=== PATIENT | male | born 2000 | race Hispanic/Latino ===

== ENCOUNTER 2018-09-08 03:41 | Inpatient (IN) | payer BC, SELFPAY ==
[2018-09-08 04:05] LABS: #Basophils 0.1 thou/uL (0.0-0.2); #Eosinphils 0.3 thou/uL (0.0-0.7); #Lymphocytes 4.8 thou/uL (1.20-3.40); #Monocytes 0.6 thou/uL (0.11-0.59); #Neutrophils 6.7 thou/uL (1.40-6.50); %Basophils 0.8 % (0.0-1.0); %Eosinophils 2.1 % (0.0-10.0); %Lymphocytes 38.1 % (28.0-48.0); %Monocytes 5.1 % (0.0-4.0); Hemoglobin 14.9 g/dL (14.0-18.0); Mean Corpuscular HGB CONC 33.2 g/dL (32.0-36.0); Mean Corpuscular Hemoglobin 29.5 pg (25.0-35.0); Mean Corpuscular Volume 88.8 fL (78.0-98.0); Mean Platelet Volume 7.7 fL (7.4-10.4); Platelet Count 325 thou/uL (130-400); RBC Distribution Width 11.8 % (11.5-14.5); Red Blood Cell (RBC) Count 5.07 mill/uL (4.00-5.20); White Blood Cell (WBC) Count 12.5 thou/uL (4.8-10.8)
[2018-09-08 04:12] LABS: INR-International Normal Ratio 1.2; PTT 34.9 SEC (22.9-36.1); Prothrombin Time 15.2 SEC (12.0-14.7)
[2018-09-08 04:17] LABS: ALT (SGPT) 31 U/L (8-55); AST (SGOT) 21 U/L (5-34); Albumin 3.9 g/dL (3.5-5.0); Alkaline Phosphatase 112 U/L (Less than 750); Anion Gap 17 mmol/L (10-20); BUN (Urea Nitrogen) 18 mg/dL (8.9-20.6); Bilirubin, Total 0.6 mg/dL (0.2-1.2); Calc. Creatinine Clearance 0 mL/min (70-130); Calcium 9.2 mg/dL (7.8-10.44); Carbon Dioxide 20 mmol/L (22-29); Chloride 105 mmol/L (98-107); Estimated GFR-MDRD 76; Globulin 3.4 g/dL (2.4-3.5); Glucose 134 mg/dL (70-105); Protein, Total 7.3 g/dL (6.0-8.3); Sodium 139 mmol/L (136-145)
[2018-09-08] MEDS ORDERED: Piperacillin/Tazobactam 3.375 GM VIAL ONE (04:48)
[2018-09-08] MEDS ORDERED: SUGAMMADEX SODIUM 500 MG/5 ML VIAL ONE (05:27)
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
[2018-09-08] MEDS ORDERED: Ondansetron PF 4 MG/2 ML Vial IVP PRN (05:36)
[2018-09-08] MEDS ORDERED: hydrALAZINE 20 MG/ML VIAL SLOW IVP PRN (05:36)
[2018-09-08] MEDS ORDERED: Morphine 4 MG/ML VIAL SLOW IVP PRN (05:36)
[2018-09-08] MEDS ORDERED: Ondansetron ODT 4 MG TAB PO PRN (05:36)
[2018-09-08] MEDS ORDERED: D5 LR w/20 mEq KCL 1,000 ML IV SCH (05:45)
[2018-09-08] MEDS ORDERED: Ketorolac Tromethamine 30 MG/ML VIAL IVP SCH (06:00)
[2018-09-08] MEDS ORDERED: Fentanyl 250 MCG/5 ML VIAL ONE (06:13)
[2018-09-08] MEDS: Acetaminophen 1,000 MG in Premix Bag 1 BAG IVPB SCH ×4 (06:24→23:35)
[2018-09-08] MEDS: Potassium Chloride 20 MEQ, Admixture Fee 1 EACH in Dextrose 5%-Lactated Ringers 1,000 ML IV SCH ×2 (08:44→17:19)
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
[2018-09-08] MEDS ORDERED: diphenhydrAMINE 50 MG/ML VIAL IVP PRN (10:13)
[2018-09-08] MEDS ORDERED: Naloxone HCl 0.4 mg/ml Vial IV PRN (10:13)
[2018-09-08] MEDS ORDERED: fentaNYL Citrate/PF 2,000 MCG in Sodium Chloride 0.9% 60 ML IV PRN (10:13)
[2018-09-08] MEDS ORDERED: Zolpidem Tartrate 5 MG TAB PO PRN (10:13)
[2018-09-08] MEDS ORDERED: diphenhydrAMINE 50 MG/ML VIAL IM PRN (10:13)
[2018-09-08] MEDS ORDERED: diphenhydrAMINE 25 MG CAP PO PRN (10:13)
[2018-09-08] MEDS ORDERED: Promethazine HCl 25 MG/ML VIAL IM PRN (10:13)
[2018-09-08] MEDS ORDERED: Communication Order-Pharmacy FS SCH (10:15)
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
[2018-09-08 11:51] LABS: Bilirubin Small (Negative); Blood, Urine Large (Negative); Clarity TURBID (Clear); Glucose, Urine (Dipstick) 100 mg/dL (Negative); Leukocyte Negative (Negative); Nitrite Negative (Negative); Protein, Urine (Dipstick) 100 mg/dL (Neg-Trace); Specific Gravity, Urine 1.038 (1.002-1.036); pH, Urine 5.5 (5.0-9.0)
[2018-09-08 11:55] LABS: Pathc Cast-AUWi Flag 2.47 (0-2.49); RBC/HPF GREATER THAN 50-TNTC HPF (0-3)
[2018-09-08 12:04] LABS: Bacteria/HPF 2+ HPF (None Seen); Hyaline Casts/LPF NONE SEEN LPF (0-3 Hyaline); Renal Epithelial None Seen HPF (0-3); Transitional Epithelial 0-3 HPF (0-3)
[2018-09-08] MEDS ORDERED: cefTRIAXone\\ROCEPHIN 1 GM in Sodium Chloride 0.9% 100 ML IVPB SCH (13:15)
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
[2018-09-08] MEDS ORDERED: Lidocaine 1% PF 5 ML VIAL ONE (15:36)
[2018-09-08] MEDS ORDERED: PROPOFOL 200 MG/20 ML VIAL ONE (15:36)
[2018-09-08] MEDS ORDERED: Rocuronium Bromide 10 MG/ML (10ML VIAL) ONE (15:36)
[2018-09-08] MEDS ORDERED: Succinylcholine Chloride 20 MG/ML 10 ml SYRINGE FS ONE (15:36)
[2018-09-08] MEDS ORDERED: PHENYLEPHRINE-NS 100 MCG/ML 10 ML SYRINGE ONE (15:36)
[2018-09-08] MEDS ORDERED: Glycopyrrolate 0.2 MG/ML 5 ML SYRINGE ONE (15:36)
[2018-09-08] MEDS ORDERED: ePHEDrine/0.9% NaCl/PF SYRINGE 50 mg/10 ml ONE (15:36)
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
[2018-09-08] MEDS ORDERED: hydrALAZINE 20 MG/ML VIAL SLOW IVP SCH (23:15)
[2018-09-08] MEDS: HYDROcodone/Acetaminophen 10/325 mg Tablet PO PRN (23:34)
[2018-09-08] MEDS: Ondansetron PF 4 MG/2 ML Vial IVP PRN (23:47)
[2018-09-09] MEDS: Potassium Chloride 20 MEQ, Admixture Fee 1 EACH in Dextrose 5%-Lactated Ringers 1,000 ML IV SCH ×2 (02:50→12:16)
[2018-09-09] MEDS: Acetaminophen 1,000 MG in Premix Bag 1 BAG IVPB SCH (06:29)
[2018-09-09 06:40] LABS: Anion Gap 14 mmol/L (10-20); BUN (Urea Nitrogen) 17 mg/dL (8.9-20.6); Calc. Creatinine Clearance 154 mL/min (70-130); Carbon Dioxide 19 mmol/L (22-29); Chloride 106 mmol/L (98-107); Estimated GFR-MDRD 60; Potassium 4.3 mmol/L (3.5-5.1); Sodium 135 mmol/L (136-145)
[2018-09-09 06:41] LABS: ALT (SGPT) 299 U/L (8-55); AST (SGOT) 303 U/L (5-34); Albumin 3.8 g/dL (3.5-5.0); Alkaline Phosphatase 90 U/L (Less than 750); Bilirubin, Total 1.2 mg/dL (0.2-1.2); Calcium 9.3 mg/dL (7.8-10.44); Globulin 3.3 g/dL (2.4-3.5); Glucose 105 mg/dL (70-105); Protein, Total 7.1 g/dL (6.0-8.3)
[2018-09-09 06:42] LABS: Band 4 % (5-11); Hemoglobin 15.1 g/dL (14.0-18.0); Lymphocytes 12 % (28-48); MDiff Complete? YES; Mean Corpuscular HGB CONC 33.3 g/dL (32.0-36.0); Mean Corpuscular Hemoglobin 30.3 pg (25.0-35.0); Mean Corpuscular Volume 91.1 fL (78.0-98.0); Mean Platelet Volume 7.7 fL (7.4-10.4); Monocytes 7 % (0-4); Neutrophil 77 % (31-61); Platelet Count 219 thou/uL (130-400); RBC Distribution Width 12.5 % (11.5-14.5); Red Blood Cell (RBC) Count 4.99 mill/uL (4.00-5.20); White Blood Cell (WBC) Count 22.5 thou/uL (4.8-10.8)
[2018-09-09] MEDS: HYDROcodone/Acetaminophen 10/325 mg Tablet PO PRN (09:19)
[2018-09-09] MEDS ORDERED: traMADol HCl 50 MG TAB PO PRN ×2 (10:36)
[2018-09-09] MEDS ORDERED: Sodium Chloride 0.9% 1,000 ML IV SCH (10:45)
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
[2018-09-09] MEDS: Ibuprofen 800 MG TAB PO SCH ×2 (14:26→21:52)
[2018-09-09] MEDS ORDERED: Heparin 10,000 UNITS/1 ML VIAL ONE (17:16)
[2018-09-09] MEDS: traMADol HCl 50 MG TAB PO SCH ×2 (17:36→23:43)
[2018-09-09] MEDS: traMADol HCl 50 MG TAB PO PRN ×2 (17:36→23:48)
[2018-09-09] MEDS: Sodium Chloride 0.9% 1,000 ML IV SCH ×2 (17:37→23:44)
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
[2018-09-10] MEDS: traMADol HCl 50 MG TAB PO SCH ×3 (05:02→19:22)
[2018-09-10] MEDS: Ibuprofen 800 MG TAB PO SCH (05:02)
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
[2018-09-10 05:36] LABS: #Eosinphils 0.1 thou/uL (0.0-0.7); #Monocytes 1.6 thou/uL (0.11-0.59); #Neutrophils 17.9 thou/uL (1.40-6.50); %Basophils 0.1 % (0.0-1.0); %Eosinophils 0.7 % (0.0-10.0); %Monocytes 7.5 % (0.0-4.0); %Neutrophils 82.7 % (31.0-61.0); Mean Corpuscular HGB CONC 31.1 g/dL (32.0-36.0); Mean Corpuscular Volume 90.2 fL (78.0-98.0); Mean Platelet Volume 7.7 fL (7.4-10.4); Platelet Count 202 thou/uL (130-400); RBC Distribution Width 12.2 % (11.5-14.5); Red Blood Cell (RBC) Count 4.62 mill/uL (4.00-5.20); White Blood Cell (WBC) Count 21.6 thou/uL (4.8-10.8)
[2018-09-10 05:53] LABS: Anion Gap 12 mmol/L (10-20); BUN (Urea Nitrogen) 15 mg/dL (8.9-20.6); Calc. Creatinine Clearance 156 mL/min (70-130); Calcium 9.4 mg/dL (7.8-10.44); Carbon Dioxide 22 mmol/L (22-29); Chloride 101 mmol/L (98-107); Estimated GFR-MDRD 61; Glucose 90 mg/dL (70-105); Magnesium 2.5 mg/dL (1.7-2.2); Sodium 131 mmol/L (136-145)
[2018-09-10 05:59] LABS: Phosphorus 1.9 mg/dL (2.3-4.7)
[2018-09-10] MEDS ORDERED: Potassium Phosphate 30 MMOL in Sodium Chloride 0.9% 500 ML IVPB SCH (07:57)
[2018-09-10] MEDS: Magnesium Oxide 400 MG TAB PO SCH ×2 (09:16→22:05)
[2018-09-10] MEDS: Sodium Chloride 1 GM TAB PO SCH ×3 (09:17→17:02)
[2018-09-10] MEDS ORDERED: Enoxaparin Sodium 30 MG/0.3 ML SYRINGE SC SCH (09:45)
[2018-09-10] MEDS ORDERED: ISOVUE-370 76%-LOCM 1 ML ONE ×2 (09:53)
[2018-09-10] MEDS ORDERED: Iopamidol 370 76% 50 ML VIAL FS ONE (09:53)
[2018-09-10] MEDS: traMADol HCl 50 MG TAB PO PRN (11:17)
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
[2018-09-10] MEDS: Acetaminophen 500 MG TAB PO PRN (15:25)
[2018-09-10] MEDS ORDERED: Sodium Bicarb 50 MEQ/50 ML VIAL IVP SCH (15:30)
[2018-09-10] MEDS ORDERED: Sodium Chloride 0.9% 1,000 ML IV SCH ×3 (15:45→18:30)
[2018-09-10 15:55] LABS: Bilirubin Small (Negative); Blood, Urine Large (Negative); Clarity CLEAR (Clear); Glucose, Urine (Dipstick) Negative (Negative); Leukocyte Negative (Negative); Nitrite Negative (Negative); Protein, Urine (Dipstick) 100 mg/dL (Neg-Trace); Specific Gravity, Urine 1.026 (1.002-1.036)
[2018-09-10 15:58] LABS: Bacteria/HPF None Seen HPF (None Seen); Hyaline Casts/LPF 0-3 HYALINE CAST LPF (0-3 Hyaline); Pathc Cast-AUWi Flag 0.58 (0-2.49); Squamous Epithelial 0-3 HPF (0-3)
[2018-09-10] MEDS ORDERED: Sodium Bicarb 50 MEQ/50 ML Abboject 8.4% SYRINGE IVP SCH (16:00)
[2018-09-10 16:06] LABS: Renal Epithelial None Seen HPF (0-3); Transitional Epithelial NONE SEEN HPF (0-3)
[2018-09-10 16:07] LABS: Urine Culture Reflex Yes Yes
[2018-09-10] MEDS ORDERED: Vecuronium 10 MG VIAL ONE (16:12)
[2018-09-10] MEDS ORDERED: Ondansetron PF 4 MG/2 ML Vial ONE (16:12)
[2018-09-10] MEDS ORDERED: PROPOFOL 200 MG/20 ML VIAL ONE (16:12)
[2018-09-10] MEDS ORDERED: PHENYLEPHRINE-NS 100 MCG/ML 10 ML SYRINGE ONE (16:12)
[2018-09-10] MEDS ORDERED: Sodium Bicarb 50 MEQ/50 ML VIAL ONE (16:12)
[2018-09-10] MEDS ORDERED: Rocuronium Bromide 10 MG/ML (10ML VIAL) ONE (16:12)
[2018-09-10] MEDS ORDERED: Ketorolac Tromethamine 30 MG/ML VIAL ONE (16:12)
[2018-09-10] MEDS ORDERED: Succinylcholine Chloride 20 MG/ML 10 ml SYRINGE FS ONE (16:12)
[2018-09-10] MEDS: Ondansetron PF 4 MG/2 ML Vial IVP PRN (16:15)
[2018-09-10] MEDS ORDERED: Vancomycin HCl 1 GM in Premix Bag 1 BAG IVPB SCH (17:07)
[2018-09-10] MEDS ORDERED: Piperacillin/Tazobactam 3.375 GM in Sodium Chloride 0.9% 100 ML IVPB SCH ×2 (18:30→23:59)
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
[2018-09-10] MEDS ORDERED: Fentanyl 250 MCG/5 ML VIAL ONE (18:47)
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
[2018-09-10] MEDS ORDERED: Sodium Chloride 0.9% 30 ML ONE ×2 (20:21→20:22)
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
[2018-09-10] MEDS ORDERED: Fentanyl 100 MCG/2 ML VIAL ONE ×2 (21:32→22:36)
[2018-09-10] MEDS ORDERED: VANCOMYCIN IVPB PRN (21:43)
[2018-09-10] MEDS: Enoxaparin Sodium 30 MG/0.3 ML SYRINGE SC SCH (22:05)
[2018-09-10] MEDS ORDERED: Piperacillin/Tazobactam 3.375 GM VIAL ONE (22:25)
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
[2018-09-11] MEDS ORDERED: Phenylephrine 1% Nasal Spray 15 ML BOT ONE (00:03)
[2018-09-11] MEDS ORDERED: PHENYLEPHRINE-NS 100 MCG/ML 10 ML SYRINGE ONE (00:04)
[2018-09-11] MEDS ORDERED: Fentanyl 100 MCG/2 ML VIAL ONE (00:09)
[2018-09-11] MEDS ORDERED: Morphine 4 MG/ML VIAL ONE (01:09)
[2018-09-11] MEDS ORDERED: Ventilator Sedation Protocol 1 EACH FS SCH (01:17)
[2018-09-11] MEDS ORDERED: Propofol BOLUS 1,000 MG/100 ML VIAL IV PRN (01:20)
[2018-09-11] MEDS ORDERED: Morphine 2 MG/ML SYRINGE SLOW IVP PRN (01:20)
[2018-09-11] MEDS ORDERED: Fentanyl BOLUS 250 ML IVPB PRN (01:20)
[2018-09-11] MEDS ORDERED: DISCONTINUE PREVIOUS NARCOTIC PAIN MEDICATIONS AND BENZODIAZEPINES FS SCH (01:20)
[2018-09-11] MEDS ORDERED: Lorazepam 2 MG/ML VIAL SLOW IVP PRN (01:20)
[2018-09-11] MEDS: fentaNYL Citrate/PF 2,000 MCG in Sodium Chloride 0.9% 60 ML IV SCH ×2 (01:30→22:00)
[2018-09-11] MEDS: Propofol 1,000 MG/100 ML VIAL IV PRN ×4 (01:44→22:22)
[2018-09-11] MEDS ORDERED: MORPHINE 10 MG/ML SYRINGE SLOW IVP SCH (02:00)
[2018-09-11] MEDS: Sodium Bicarbonate 150 MEQ in Dextrose 5% in Water 1,000 ML IV SCH ×2 (02:00→10:39)
[2018-09-11] MEDS ORDERED: Sodium Chloride 0.9% 1,000 ML IV SCH (02:15)
[2018-09-11 05:01] LABS: Band 23 % (5-11); Hemoglobin 13.8 g/dL (14.0-18.0); Lymphocytes 8 % (28-48); MDiff Complete? YES; Mean Corpuscular HGB CONC 33.5 g/dL (32.0-36.0); Mean Corpuscular Hemoglobin 30.1 pg (25.0-35.0); Mean Corpuscular Volume 89.9 fL (78.0-98.0); Mean Platelet Volume 7.9 fL (7.4-10.4); Monocytes 5 % (0-4); Neutrophil 64 % (31-61); Platelet Count 201 thou/uL (130-400); RBC Distribution Width 12.3 % (11.5-14.5); Red Blood Cell (RBC) Count 4.59 mill/uL (4.00-5.20); White Blood Cell (WBC) Count 24.9 thou/uL (4.8-10.8)
[2018-09-11 05:08] LABS: Anion Gap 13 mmol/L (10-20); BUN (Urea Nitrogen) 16 mg/dL (8.9-20.6); Calc. Creatinine Clearance 176 mL/min (70-130); Calcium 7.6 mg/dL (7.8-10.44); Carbon Dioxide 21 mmol/L (22-29); Chloride 104 mmol/L (98-107); Estimated GFR-MDRD 70; Glucose 129 mg/dL (70-105); Magnesium 1.3 mg/dL (1.7-2.2); Phosphorus 3.9 mg/dL (2.3-4.7); Potassium 4.3 mmol/L (3.5-5.1); Sodium 134 mmol/L (136-145)
[2018-09-11] MEDS ORDERED: Magnesium Sulfate 3 GM in Sodium Chloride 0.9% 100 ML IVPB SCH (05:45)
[2018-09-11] MEDS ORDERED: Piperacillin/Tazobactam 4.5 GM in Sodium Chloride 0.9% 100 ML IVPB SCH (06:00)
[2018-09-11 06:39] LABS: Actual Bicarbonate (HCO3a) 21.6 mEq/L (22-28); Base Excess (BEa) -2.4 mEq/L (-2.0 to +3.0); CO2 Tension 35.3 mmHg (35.0-45.0); Calcium, Ionized 1.03 mmol/L (1.12-1.30); Carboxyhemoglobin (COHb) 1.4 gm% (0.0-3.0); Hemoglobin (Hb) 14.3 g/dL (11.4-15.4); O2 Tension (PaO2) 116.7 mmHg (80.0-100.0); Potassium - ABG Lab 4.37 mmol/L (3.70-5.30); pH, Arterial 7.41 (7.35-7.45)
[2018-09-11 06:40] LABS: ALV-art Gradient 124.375 (0-20); Puncture Site LINE
[2018-09-11] MEDS ORDERED: Calcium Chloride 13.6 MEQ in Sodium Chloride 0.9% 100 ML IVPB SCH (07:30)
[2018-09-11] MEDS ORDERED: Calcium Chloride 1 GM/10 ML Abboject SYRINGE IVP SCH (07:30)
[2018-09-11] MEDS ORDERED: Pantoprazole 40 MG VIAL IVP SCH (09:00)
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
[2018-09-11] MEDS ORDERED: Propofol 1,000 MG/100 ML VIAL IV ONE (09:09)
[2018-09-11] MEDS ORDERED: ABX IVPB PRN (09:13)
[2018-09-11] MEDS: Magnesium Oxide 400 MG TAB PO SCH ×2 (09:18→22:19)
[2018-09-11] MEDS: Sodium Chloride 1 GM TAB PO SCH ×3 (09:18→17:34)
[2018-09-11] MEDS: Enoxaparin Sodium 30 MG/0.3 ML SYRINGE SC SCH ×2 (09:19→22:19)
[2018-09-11] MEDS: Acetaminophen 500 MG TAB PO PRN ×2 (09:32→23:41)
[2018-09-11] MEDS: Meropenem 2 GM, Admixture Fee 1 EACH in Sodium Chloride 0.9% 100 ML IVPB SCH ×3 (09:35→18:31)
--- NOTE | 2018-09-11 09:53 | RAD ---
CHEST 1 VIEW: Date: 09/11/18 HISTORY: Dyspnea. Follow-up. COMPARISON: 09/10/18. FINDINGS: Cardiac silhouette is magnified by projection. Pulmonary vasculature is engorged with bilateral perih ilar and bibasilar infiltrates. Mediastinum is midline. Tip of a left subclavian central venous catheter overlies the cavoatrial junction. No evidence of pne umothorax. Tip of an endotracheal catheter overlies the thoracic inlet. monitoring engineer leads overlie the chest. Feeding tube descends to the abdomen, exiting the inferior aspect of the right upper quadrant over th e second portion of the duodenum. IMPRESSION: 1. Endotracheal catheter and left subclavian central venous catheter are in good radiographic positi on. 2. Mild pulmonary vascular congestion. POS: [facility]
--- NOTE | 2018-09-11 09:57 | RAD ---
AP VIEW CHEST: 09/11/2018 HISTORY: Chest pain. COMPARISON: Exam from earlier in the day on 09/11/2018. FINDINGS: AP view chest demonstrates a feeding tube in place. The patient is intubated. The endotracheal tube is in good position. A left subclavian central line is seen. Cardiomegaly is seen. Pulmonary vasc ular congestion is seen. There is suboptimal inspiratory effort. There may be a small left-sided pl eural effusion. IMPRESSION: 1. Cardiomegaly. 2. Pulmonary vascular congestion. POS: [facility]
[2018-09-11 13:04] LABS: Hemoglobin 12.5 g/dL (14.0-18.0); Mean Corpuscular HGB CONC 33.2 g/dL (32.0-36.0); Mean Corpuscular Volume 90.1 fL (78.0-98.0); Mean Platelet Volume 8.2 fL (7.4-10.4); Platelet Count 215 thou/uL (130-400); RBC Distribution Width 12.4 % (11.5-14.5); Red Blood Cell (RBC) Count 4.16 mill/uL (4.00-5.20); White Blood Cell (WBC) Count 17.5 thou/uL (4.8-10.8)
[2018-09-11 13:15] LABS: Anion Gap 12 mmol/L (10-20); BUN (Urea Nitrogen) 16 mg/dL (8.9-20.6); Calc. Creatinine Clearance 138 mL/min (70-130); Calcium 7.2 mg/dL (7.8-10.44); Carbon Dioxide 21 mmol/L (22-29); Chloride 107 mmol/L (98-107); Estimated GFR-MDRD 51; Glucose 136 mg/dL (70-105); Magnesium 1.9 mg/dL (1.7-2.2); Phosphorus 3.8 mg/dL (2.3-4.7); Potassium 4.4 mmol/L (3.5-5.1); Sodium 136 mmol/L (136-145)
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
[2018-09-11 13:27] LABS: Band 3 % (5-11); Lymphocytes 8 % (28-48); MDiff Complete? YES; Monocytes 7 % (0-4); Neutrophil 82 % (31-61); Platelet Morphology Comment Appears Adequate
[2018-09-11] MEDS ORDERED: Sodium Bicarbonate 150 MEQ in Dextrose 5% in Water 1,000 ML IV SCH ×3 (14:29→23:45)
[2018-09-11] MEDS: Micafungin 100 MG in Sodium Chloride 0.9% 100 ML IVPB SCH (15:15)
[2018-09-11] MEDS ORDERED: Potassium Phosphate 15 MMOL in Sodium Chloride 0.9% 250 ML 250 ML IVPB ONE (16:02)
[2018-09-11] MEDS ORDERED: Magnesium Oxide 400 MG TAB PO SCH (16:10)
[2018-09-11] MEDS ORDERED: Potassium Phosphate 15 MMOL in Sodium Chloride 0.9% 250 ML 250 ML IVPB SCH (16:15)
[2018-09-11] MEDS ORDERED: cefTRIAXone\\ROCEPHIN 1 GM in Sodium Chloride 0.9% 100 ML IVPB SCH (20:00)
[2018-09-11] MEDS ORDERED: Ibuprofen 100 MG/5 ML UDCUP PO PRN (23:58)
[2018-09-12] MEDS: Meropenem 2 GM, Admixture Fee 1 EACH in Sodium Chloride 0.9% 100 ML IVPB SCH ×3 (02:01→17:31)
[2018-09-12] MEDS ORDERED: Furosemide 20 MG/2 ML VIAL SLOW IVP SCH (02:30)
[2018-09-12 06:02] LABS: Lactic Acid 0.8 mmol/L (0.5-2.2)
[2018-09-12 06:41] LABS: Actual Bicarbonate (HCO3a) 32.8 mEq/L (22-28); Base Excess (BEa) 8.5 mEq/L (-2.0 to +3.0); Calcium, Ionized 1.01 mmol/L (1.12-1.30); Carboxyhemoglobin (COHb) 0.9 gm% (0.0-3.0); O2 Tension (PaO2) 80.1 mmHg (80.0-100.0); Potassium - ABG Lab 3.34 mmol/L (3.70-5.30); pH, Arterial 7.49 (7.35-7.45)
[2018-09-12 06:43] LABS: Puncture Site LINE
[2018-09-12 07:21] LABS: Hemoglobin 11.5 g/dL (14.0-18.0); Mean Corpuscular HGB CONC 32.1 g/dL (32.0-36.0); Mean Corpuscular Hemoglobin 29.3 pg (25.0-35.0); Mean Corpuscular Volume 91.3 fL (78.0-98.0); Mean Platelet Volume 8.5 fL (7.4-10.4); Platelet Count 241 thou/uL (130-400); RBC Distribution Width 12.5 % (11.5-14.5); Red Blood Cell (RBC) Count 3.93 mill/uL (4.00-5.20); White Blood Cell (WBC) Count 20.6 thou/uL (4.8-10.8)
[2018-09-12 07:32] LABS: Band 10 % (5-11); Eosinophils 1 % (0-10); Lymphocytes 8 % (28-48); MDiff Complete? YES; Metamyelocyte 1 % (0-0); Monocytes 4 % (0-4); Neutrophil 76 % (31-61); RBC Morphology Normal
[2018-09-12 07:39] LABS: Anion Gap 14 mmol/L (10-20); BUN (Urea Nitrogen) 17 mg/dL (8.9-20.6); Calc. Creatinine Clearance 131 mL/min (70-130); Carbon Dioxide 27 mmol/L (22-29); Chloride 99 mmol/L (98-107); Estimated GFR-MDRD 48; Glucose 115 mg/dL (70-105); Magnesium 2.1 mg/dL (1.7-2.2); Phosphorus 3.5 mg/dL (2.3-4.7); Potassium 3.6 mmol/L (3.5-5.1); Sodium 136 mmol/L (136-145)
[2018-09-12 08:41] LABS: Vancomycin, Trough 1.7 ug/mL
[2018-09-12] MEDS: Magnesium Oxide 400 MG TAB PO SCH ×2 (09:01→20:21)
[2018-09-12] MEDS: Enoxaparin Sodium 30 MG/0.3 ML SYRINGE SC SCH ×2 (09:02→20:20)
[2018-09-12] MEDS: Dextrose 5 % And 0.9 % NaCl 1,000 ML IV SCH (09:17)
[2018-09-12] MEDS: Pantoprazole 40 MG VIAL IVP SCH (09:19)
[2018-09-12] MEDS: Sodium Chloride 1 GM TAB PO SCH (09:25)
[2018-09-12] MEDS ORDERED: Communication Order-Pharmacy FS SCH (11:45)
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
[2018-09-12] MEDS: HYDROmorphone 10 mg/100 ml CADD IVPB PRN (13:07)
[2018-09-12] MEDS: Micafungin 100 MG in Sodium Chloride 0.9% 100 ML IVPB SCH (14:19)
[2018-09-12] MEDS: Acetaminophen 500 MG TAB PO PRN (15:11)
[2018-09-12] MEDS ORDERED: Budesonide 0.5 MG/2 ML NEB ONE ×2 (17:24)
[2018-09-13] MEDS: Acetaminophen 500 MG TAB PO PRN
[2018-09-13] MEDS: Dextrose 5 % And 0.9 % NaCl 1,000 ML IV SCH ×3 (00:11→14:50)
[2018-09-13] MEDS: Meropenem 2 GM, Admixture Fee 1 EACH in Sodium Chloride 0.9% 100 ML IVPB SCH ×3 (02:09→20:01)
[2018-09-13 05:03] LABS: #Basophils 0.1 thou/uL (0.0-0.2); #Eosinphils 0.5 thou/uL (0.0-0.7); #Lymphocytes 2.2 thou/uL (1.20-3.40); #Monocytes 2.5 thou/uL (0.11-0.59); #Neutrophils 18.1 thou/uL (1.40-6.50); %Basophils 0.4 % (0.0-1.0); %Eosinophils 2.2 % (0.0-10.0); %Lymphocytes 9.6 % (28.0-48.0); %Monocytes 10.8 % (0.0-4.0); %Neutrophils 77.1 % (31.0-61.0); Mean Corpuscular HGB CONC 32.4 g/dL (32.0-36.0); Mean Corpuscular Hemoglobin 29.7 pg (25.0-35.0); Mean Corpuscular Volume 91.6 fL (78.0-98.0); Platelet Count 282 thou/uL (130-400); RBC Distribution Width 12.3 % (11.5-14.5); Red Blood Cell (RBC) Count 3.72 mill/uL (4.00-5.20); White Blood Cell (WBC) Count 23.5 thou/uL (4.8-10.8)
[2018-09-13 05:20] LABS: Anion Gap 13 mmol/L (10-20); BUN (Urea Nitrogen) 19 mg/dL (8.9-20.6); Calc. Creatinine Clearance 169 mL/min (70-130); Carbon Dioxide 27 mmol/L (22-29); Chloride 99 mmol/L (98-107); Estimated GFR-MDRD 65; Glucose 94 mg/dL (70-105); Magnesium 1.7 mg/dL (1.7-2.2); Sodium 135 mmol/L (136-145)
[2018-09-13] MEDS: Magnesium Oxide 400 MG TAB PO SCH ×2 (08:34→22:11)
[2018-09-13] MEDS: Pantoprazole 40 MG VIAL IVP SCH (08:35)
[2018-09-13] MEDS: Enoxaparin Sodium 30 MG/0.3 ML SYRINGE SC SCH ×2 (08:35→22:11)
[2018-09-13] MEDS ORDERED: Magnesium Sulfate 3 GM in Sodium Chloride 0.9% 100 ML IVPB SCH (10:30)
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
[2018-09-13] MEDS: Micafungin 100 MG in Sodium Chloride 0.9% 100 ML IVPB SCH (14:53)
[2018-09-13] MEDS: Sodium Chloride 0.9% 1,000 ML IV SCH (16:11)
[2018-09-13] MEDS ORDERED: Sodium Bicarbonate Tab 325 MG TAB PER TUBE PRN (18:37)
[2018-09-13] MEDS ORDERED: Pancrelipase DR 12000 1 CAP FS PRN (18:37)
[2018-09-13] MEDS ORDERED: Chloraseptic Spray 180 ml Bottle PO PRN (19:09)
[2018-09-14] MEDS: Meropenem 2 GM, Admixture Fee 1 EACH in Sodium Chloride 0.9% 100 ML IVPB SCH ×3 (03:37→17:35)
[2018-09-14] MEDS: HYDROmorphone 10 mg/100 ml CADD IVPB PRN (03:38)
[2018-09-14 06:50] LABS: Band 6 % (5-11); Eosinophils 4 % (0-10); Hemoglobin 11.4 g/dL (14.0-18.0); Lymphocytes 10 % (28-48); MDiff Complete? YES; Mean Corpuscular Hemoglobin 29.9 pg (25.0-35.0); Mean Corpuscular Volume 90.6 fL (78.0-98.0); Mean Platelet Volume 7.4 fL (7.4-10.4); Metamyelocyte 1 % (0-0); Monocytes 5 % (0-4); Neutrophil 74 % (31-61); Platelet Count 372 thou/uL (130-400); Platelet Morphology Comment Appears Adequate; RBC Distribution Width 12.3 % (11.5-14.5); Red Blood Cell (RBC) Count 3.83 mill/uL (4.00-5.20); White Blood Cell (WBC) Count 24.8 thou/uL (4.8-10.8)
[2018-09-14 07:02] LABS: Anion Gap 10 mmol/L (10-20); BUN (Urea Nitrogen) 20 mg/dL (8.9-20.6); Calc. Creatinine Clearance 202 mL/min (70-130); Calcium 8.3 mg/dL (7.8-10.44); Carbon Dioxide 25 mmol/L (22-29); Chloride 104 mmol/L (98-107); Estimated GFR-MDRD 79; Glucose 101 mg/dL (70-105); Magnesium 1.9 mg/dL (1.7-2.2); Phosphorus 2.9 mg/dL (2.3-4.7); Sodium 135 mmol/L (136-145)
[2018-09-14] MEDS: Pantoprazole 40 MG VIAL IVP SCH (09:51)
[2018-09-14] MEDS: Magnesium Oxide 400 MG TAB PO SCH ×2 (09:51→19:56)
[2018-09-14] MEDS: Enoxaparin Sodium 30 MG/0.3 ML SYRINGE SC SCH ×2 (09:52→19:56)
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
[2018-09-14] MEDS: Micafungin 100 MG in Sodium Chloride 0.9% 100 ML IVPB SCH (15:45)
[2018-09-14] MEDS: Sodium Chloride 0.9% 1,000 ML IV SCH ×2 (15:45→17:35)
[2018-09-14] MEDS ORDERED: Melatonin 3 MG TAB PO PRN (17:03)
[2018-09-14 21:55] LABS: Vancomycin, Trough 16.8 ug/mL
[2018-09-15] MEDS: Meropenem 2 GM, Admixture Fee 1 EACH in Sodium Chloride 0.9% 100 ML IVPB SCH ×3 (02:41→17:53)
[2018-09-15] MEDS: Magnesium Oxide 400 MG TAB PO SCH ×2 (08:28→20:49)
[2018-09-15] MEDS: Pantoprazole 40 MG VIAL IVP SCH (08:28)
[2018-09-15] MEDS: Enoxaparin Sodium 30 MG/0.3 ML SYRINGE SC SCH ×2 (08:29→20:49)
[2018-09-15] MEDS: Ondansetron PF 4 MG/2 ML Vial IVP PRN (11:38)
[2018-09-15] MEDS ORDERED: Metoclopramide HCl 10 MG/2 ML VIAL IVP PRN (13:35)
[2018-09-15] MEDS: Micafungin 100 MG in Sodium Chloride 0.9% 100 ML IVPB SCH (15:14)
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
[2018-09-16] MEDS: Meropenem 2 GM, Admixture Fee 1 EACH in Sodium Chloride 0.9% 100 ML IVPB SCH ×2 (01:06→09:49)
[2018-09-16 04:55] LABS: Band 6 % (5-11); Eosinophils 2 % (0-10); Hemoglobin 11.6 g/dL (14.0-18.0); Lymphocytes 14 % (28-48); MDiff Complete? YES; Mean Corpuscular HGB CONC 33.7 g/dL (32.0-36.0); Mean Corpuscular Hemoglobin 30.2 pg (25.0-35.0); Mean Corpuscular Volume 89.5 fL (78.0-98.0); Mean Platelet Volume 7.2 fL (7.4-10.4); Metamyelocyte 1 % (0-0); Monocytes 9 % (0-4); Neutrophil 67 % (31-61); Platelet Count 458 thou/uL (130-400); Platelet Morphology Comment Appears Increased; RBC Distribution Width 12.3 % (11.5-14.5); Red Blood Cell (RBC) Count 3.84 mill/uL (4.00-5.20); White Blood Cell (WBC) Count 27.2 thou/uL (4.8-10.8)
[2018-09-16 05:03] LABS: Anion Gap 12 mmol/L (10-20); BUN (Urea Nitrogen) 19 mg/dL (8.9-20.6); Calc. Creatinine Clearance 234 mL/min (70-130); Calcium 8.4 mg/dL (7.8-10.44); Carbon Dioxide 24 mmol/L (22-29); Chloride 101 mmol/L (98-107); Estimated GFR-MDRD Greater than 90; Glucose 104 mg/dL (70-105); Magnesium 2.1 mg/dL (1.7-2.2); Phosphorus 3.1 mg/dL (2.3-4.7); Potassium 3.8 mmol/L (3.5-5.1); Sodium 133 mmol/L (136-145)
[2018-09-16] MEDS: Enoxaparin Sodium 30 MG/0.3 ML SYRINGE SC SCH ×2 (08:15→20:05)
[2018-09-16] MEDS: Magnesium Oxide 400 MG TAB PO SCH (08:16)
[2018-09-16] MEDS: Pantoprazole 40 MG VIAL IVP SCH (08:16)
[2018-09-16] MEDS ORDERED: traMADol HCl 50 MG TAB PO PRN ×2 (08:32)
[2018-09-16 11:14] LABS: Vancomycin, Trough 14.3 ug/mL
[2018-09-16] MEDS: Acetaminophen 500 MG TAB PO SCH ×3 (12:25→17:27)
[2018-09-16] MEDS: Sodium Chloride 0.9% 1,000 ML IV SCH (15:16)
[2018-09-17] MEDS: Acetaminophen 500 MG TAB PO SCH ×2 (00:22→05:28)
[2018-09-17 04:03] LABS: #Basophils 0.1 thou/uL (0.0-0.2); #Eosinphils 1.4 thou/uL (0.0-0.7); #Lymphocytes 2.5 thou/uL (1.20-3.40); #Monocytes 2.6 thou/uL (0.11-0.59); #Neutrophils 19.2 thou/uL (1.40-6.50); %Basophils 0.2 % (0.0-1.0); %Eosinophils 5.5 % (0.0-10.0); %Lymphocytes 9.7 % (28.0-48.0); %Monocytes 9.9 % (0.0-4.0); %Neutrophils 74.7 % (31.0-61.0); Hemoglobin 11.5 g/dL (14.0-18.0); Mean Corpuscular HGB CONC 32.3 g/dL (32.0-36.0); Mean Corpuscular Hemoglobin 28.8 pg (25.0-35.0); Mean Corpuscular Volume 89.1 fL (78.0-98.0); Mean Platelet Volume 7.2 fL (7.4-10.4); Platelet Count 506 thou/uL (130-400); RBC Distribution Width 12.3 % (11.5-14.5); Red Blood Cell (RBC) Count 3.99 mill/uL (4.00-5.20); White Blood Cell (WBC) Count 25.8 thou/uL (4.8-10.8)
[2018-09-17 04:20] LABS: Anion Gap 14 mmol/L (10-20); BUN (Urea Nitrogen) 19 mg/dL (8.9-20.6); Calc. Creatinine Clearance 237 mL/min (70-130); Calcium 8.4 mg/dL (7.8-10.44); Carbon Dioxide 23 mmol/L (22-29); Chloride 103 mmol/L (98-107); Estimated GFR-MDRD Greater than 90; Glucose 104 mg/dL (70-105); Magnesium 1.9 mg/dL (1.7-2.2); Phosphorus 3.6 mg/dL (2.3-4.7); Potassium 4.1 mmol/L (3.5-5.1); Sodium 136 mmol/L (136-145)
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
[2018-09-17] MEDS: Saccharomyces boulardii 250 MG CAP PO SCH (08:53)
[2018-09-17] MEDS: Enoxaparin Sodium 30 MG/0.3 ML SYRINGE SC SCH ×2 (08:53→20:40)
[2018-09-17] MEDS: Sodium Chloride 0.9% 1,000 ML IV SCH (14:39)
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
[2018-09-18 06:44] LABS: Band 5 % (5-11); Eosinophils 6 % (0-10); Hemoglobin 11.6 g/dL (14.0-18.0); Lymphocytes 7 % (28-48); MDiff Complete? YES; Mean Corpuscular HGB CONC 32.2 g/dL (32.0-36.0); Mean Corpuscular Hemoglobin 28.6 pg (25.0-35.0); Mean Corpuscular Volume 88.8 fL (78.0-98.0); Metamyelocyte 1 % (0-0); Monocytes 4 % (0-4); Neutrophil 77 % (31-61); Platelet Count 568 thou/uL (130-400); Platelet Morphology Comment Appears Increased; RBC Distribution Width 12.3 % (11.5-14.5); Red Blood Cell (RBC) Count 4.06 mill/uL (4.00-5.20); White Blood Cell (WBC) Count 26.9 thou/uL (4.8-10.8)
[2018-09-18 06:47] LABS: Anion Gap 14 mmol/L (10-20); BUN (Urea Nitrogen) 20 mg/dL (8.9-20.6); Calc. Creatinine Clearance 204 mL/min (70-130); Calcium 8.4 mg/dL (7.8-10.44); Carbon Dioxide 23 mmol/L (22-29); Chloride 101 mmol/L (98-107); Estimated GFR-MDRD 85; Glucose 103 mg/dL (70-105); Magnesium 2.1 mg/dL (1.7-2.2); Phosphorus 3.6 mg/dL (2.3-4.7); Potassium 4.2 mmol/L (3.5-5.1); Sodium 134 mmol/L (136-145)
[2018-09-18] MEDS ORDERED: Bisacodyl 10 MG SUPP PR ONE (08:30)
[2018-09-18] MEDS: Enoxaparin Sodium 30 MG/0.3 ML SYRINGE SC SCH ×2 (08:49→21:24)
[2018-09-18] MEDS: Saccharomyces boulardii 250 MG CAP PO SCH (08:49)
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
[2018-09-18] MEDS ORDERED: metroNIDAZOLE 500 MG in Premix Bag 1 BAG IVPB SCH (12:38)
[2018-09-18] MEDS: Sodium Chloride 0.9% 1,000 ML IV SCH (13:25)
[2018-09-18 13:40] LABS: Bilirubin Negative (Negative); Blood, Urine Moderate (Negative); Clarity CLEAR (Clear); Glucose, Urine (Dipstick) Negative (Negative); Leukocyte Negative (Negative); Nitrite Negative (Negative); Protein, Urine (Dipstick) 30 mg/dL (Neg-Trace); Specific Gravity, Urine 1.018 (1.002-1.036); Urobilinogen 0.2 mg/dL (0.2-1.0); pH, Urine 6.5 (5.0-9.0)
[2018-09-18 13:43] LABS: Bacteria/HPF None Seen HPF (None Seen); Hyaline Casts/LPF 0-3 HYALINE CAST LPF (0-3 Hyaline); Pathc Cast-AUWi Flag 0.14 (0-2.49); Squamous Epithelial None Seen HPF (0-3)
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
[2018-09-18 13:49] LABS: Urine Culture Reflex Yes Yes
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
[2018-09-18] MEDS ORDERED: Lidocaine 1% PF 5 ML VIAL ONE (14:16)
[2018-09-18] MEDS ORDERED: Sodium Bicarbonate 2.5 MEQ/5 ML VIAL ONE (14:16)
[2018-09-18 15:05] VITALS: BMI 46.5
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
--- NOTE | 2018-09-18 15:43 | RAD ---
INSPIRATORY/EXPIRATORY VIEWS OF THE CHEST 09/18/18 COMPARISON: Prior exam dated 09/18/18 at 8:40 a.m. FINDINGS: There is improvement in the left sided hemothorax. There is persistent left basilar air space opacity possibly reflecting residual contusion, pneumonia or subsegmental atelectasis. The right lung is joshua ar. Left subclavian central venous catheter is unchanged. No pneumothorax is evident. IMPRESSION: 1. Interval left sided thoracentesis with improvement in the extent of left sided pleural fluid. 2. Residual air space opacity in the left lower lobe may reflect residual contusion, pneumonia, or atelectasis. Findings were called to Dr. Quinteros at 2:54 p.m. on 09/18/18. Code CR POS: [facility]
[2018-09-18 16:02] LABS: Pleural Fluid, Protein 3.8 g/dL
[2018-09-18 16:09] LABS: BF Color Red; Body Fluid Source THORACENTESIS FLD; Clarity Cloudy/Turbid (Clear); RBC Count-Automated 806000 /cumm; Tube # EDTA; WBC/NonHematic-Auto 3216 /cumm
[2018-09-18 16:49] LABS: BF Segmented Neutrophils 12 %; Cell Count Non Hematic 40 %; Lymphocytes 48 %
[2018-09-18] MEDS: metroNIDAZOLE 500 MG TAB PO SCH (21:24)
[2018-09-19] MEDS ORDERED: Ciprofloxacin 500 MG TAB PO SCH ×2 (01:00→09:00)
[2018-09-19 05:06] LABS: #Basophils 0.1 thou/uL (0.0-0.2); #Eosinphils 1.2 thou/uL (0.0-0.7); #Lymphocytes 3.5 thou/uL (1.20-3.40); #Monocytes 1.8 thou/uL (0.11-0.59); #Neutrophils 20.7 thou/uL (1.40-6.50); %Basophils 0.3 % (0.0-1.0); %Eosinophils 4.3 % (0.0-10.0); %Lymphocytes 12.9 % (28.0-48.0); %Monocytes 6.6 % (0.0-4.0); %Neutrophils 75.8 % (31.0-61.0); Hemoglobin 11.9 g/dL (14.0-18.0); Mean Corpuscular HGB CONC 33.4 g/dL (32.0-36.0); Mean Corpuscular Hemoglobin 29.7 pg (25.0-35.0); Mean Corpuscular Volume 88.7 fL (78.0-98.0); Mean Platelet Volume 6.9 fL (7.4-10.4); Platelet Count 653 thou/uL (130-400); RBC Distribution Width 12.2 % (11.5-14.5); Red Blood Cell (RBC) Count 4.02 mill/uL (4.00-5.20); White Blood Cell (WBC) Count 27.3 thou/uL (4.8-10.8)
[2018-09-19 05:28] LABS: Anion Gap 10 mmol/L (10-20); BUN (Urea Nitrogen) 23 mg/dL (8.9-20.6); Calc. Creatinine Clearance 194 mL/min (70-130); Carbon Dioxide 26 mmol/L (22-29); Chloride 102 mmol/L (98-107); Estimated GFR-MDRD 80; Glucose 104 mg/dL (70-105); Magnesium 2.1 mg/dL (1.7-2.2); Phosphorus 4.6 mg/dL (2.3-4.7); Potassium 4.3 mmol/L (3.5-5.1); Sodium 134 mmol/L (136-145)
[2018-09-19] MEDS: Enoxaparin Sodium 30 MG/0.3 ML SYRINGE SC SCH (09:37)
[2018-09-19] MEDS: metroNIDAZOLE 500 MG TAB PO SCH (09:37)
[2018-09-19] MEDS: Saccharomyces boulardii 250 MG CAP PO SCH (09:37)
[2018-09-19] MEDS ORDERED: Amoxicillin/Potassium Clav 875 MG TAB PO SCH ×3 (11:57→21:00)
[2018-09-19 15:42] VITALS: BP 126/93; TEMP 98.2
[2018-09-20] MEDS ORDERED: Aspirin 325 mg Enteric Coated Tablet PO SCH (09:00)
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
== END 2018-09-19 16:11 | disposition home health service (06) | DRG 957 ==
LOC: ERS 03:41 → SDC/OP 04:08 → EDBD 04:08 → EEVIPCON 04:08 → CCU 05:36 → SURG A 15:06 → CCU 09-11 00:30 → SURG A 09-13 16:31
PROVIDERS: ADMIT Specialist; ATTEND Specialist
PROC: 0W9D0ZZ Drainage of Pericardial Cavity, Open Approach (ICD-10-PCS; principal; 2018-09-08)
PROC: 0W3G0ZZ Control Bleeding in Peritoneal Cavity, Open Approach (ICD-10-PCS; 2018-09-08)
PROC: 0DJ08ZZ Inspection of Upper Intestinal Tract, Via Natural or Artificial Opening Endoscopic (ICD-10-PCS; 2018-09-08)
PROC: 30233L1 Transfusion of Nonautologous Fresh Plasma into Peripheral Vein, Percutaneous Approach (ICD-10-PCS; 2018-09-08)
PROC: 30233N1 Transfusion of Nonautologous Red Blood Cells into Peripheral Vein, Percutaneous Approach (ICD-10-PCS; 2018-09-08)
PROC: 0DBL0ZZ Excision of Transverse Colon, Open Approach (ICD-10-PCS; 2018-09-10)
PROC: 0D1B0Z4 Bypass Ileum to Cutaneous, Open Approach (ICD-10-PCS; 2018-09-10)
PROC: 05H633Z Insertion of Infusion Device into Left Subclavian Vein, Percutaneous Approach (ICD-10-PCS; 2018-09-10)
PROC: 0W9B3ZZ Drainage of Left Pleural Cavity, Percutaneous Approach (ICD-10-PCS; 2018-09-18)
DX: S36.113A Laceration of liver, unspecified degree, initial encounter (principal); A40.9 Streptococcal sepsis, unspecified; S26.90XA Unspecified injury of heart, unspecified with or without hemopericardium, initial encounter; K65.8 Other peritonitis; J96.01 Acute respiratory failure with hypoxia; J96.02 Acute respiratory failure with hypercapnia; S27.1XXA Traumatic hemothorax, initial encounter; Z68.42 Body mass index [BMI] 45.0-49.9, adult; E87.1 Hypo-osmolality and hyponatremia; N28.0 Ischemia and infarction of kidney; S36.532A Laceration of descending [left] colon, initial encounter; E87.2 Acidosis; N39.0 Urinary tract infection, site not specified; N17.9 Acute kidney failure, unspecified; E83.51 Hypocalcemia; E83.42 Hypomagnesemia; E66.9 Obesity, unspecified; X95.9XXA Assault by unspecified firearm discharge, initial encounter; Y92.410 Unspecified street and highway as the place of occurrence of the external cause; F17.210 Nicotine dependence, cigarettes, uncomplicated
CPT/HCPCS: 36415; 36430; 36556; 71045; 71260; 74018; 74174; 74176; 74177; 76942; 80048; 80053; 80202; 81001; 81003; 81015; 82150; 82533; 82805; 82945; 83605; 83615; 83735; 84100; 84145; 84157; 85007; 85025; 85027; 85060; 85610; 85730; 86850; 86900; 86901; 87040; 87070; 87077; 87086; 87116; 87149; 87186; 87205; 87206; 88112; 88305; 88307; 89051; 94002; 94003; 94640; C9113; J0131; J0360; J0696; J0744; J1200; J1644; J1650; J1885; J1940; J2001; J2185; J2248; J2270; J2405; J2543; J2550; J2704; J3010; J3370; J3475; J7050; J7070; J7620; J7626; P9016; P9059; Q0162; Q9966; Q9967